=== PATIENT | male | born 1935 | race Two or more races ===

== ENCOUNTER 2021-10-06 21:03 | Emergency (ER) | payer MEDICARE, OTHER ==
[~2021-10-06] VITALS: Ht 154.9 cm; Wt 68.0 kg
[2021-10-06 21:13] VITALS: BP 137/76
== END 2021-10-06 22:46 | disposition home or self-care (01) ==
LOC: ER 21:08
DX: L29.9 Pruritus, unspecified (principal); Z60.2 Problems related to living alone